=== PATIENT | female | born 1960 | race Caucasian/White ===

== ENCOUNTER 2021-07-26 19:50 | Emergency (ER) | payer OTHER ==
[~2021-07-26] VITALS: Ht 177.8 cm; Wt 86.2 kg
[2021-07-27 00:07] VITALS: BP 152/87
== END 2021-07-27 00:11 ==
LOC: ER 19:50
PROVIDERS: Emergency Medicine
DX: F22 Delusional disorders (principal); Z20.822 Contact with and (suspected) exposure to COVID-19; Z88.0 Allergy status to penicillin; Z88.6 Allergy status to analgesic agent